=== PATIENT | male | born 2000 | race Caucasian/White ===

== ENCOUNTER 2021-07-20 02:37 | Emergency (ER) | payer MEDICAID ==
[~2021-07-20] VITALS: Ht 165.1 cm; Wt 107.5 kg
[2021-07-20 02:49] VITALS: BP 132/76
[2021-07-20] MEDS ORDERED: PREDNISONE 20MG TABLET PO ONE (04:00)
[2021-07-20] MEDS ORDERED: DIPHENHYDRAMINE 25MG CAPSULE PO ONE (04:00)
[2021-07-20] MEDS ORDERED: B50 MT (04:17)
[2021-07-20] MEDS ORDERED: P20 MT (04:17)
== END 2021-07-20 04:35 | disposition home or self-care (01) ==
LOC: ER 02:37
DX: L50.9 Urticaria, unspecified (principal)
CPT/HCPCS: 99283; J7512; Q0163

== ENCOUNTER 2021-10-30 00:35 | Emergency (ER) | payer MEDICAID ==
[~2021-10-30] VITALS: Ht 165.1 cm; Wt 105.6 kg
[~2021-10-30 00:35] MED LIST: B50 MT; P20 MT
[2021-10-30 00:47] VITALS: BP 128/69
[2021-10-30 04:54] LABS: CLARITY URINE CLEAR (CLEAR); COLOR URINE YELLOW (YELLOW); KETONES URINE TRACE (NEGATIVE); LEUKOCYTE ESTERASE URINE NEGATIVE (NEGATIVE); NITRITE URINE NEGATIVE (NEGATIVE); OCCULT BLOOD URINE NEGATIVE (NEGATIVE); PH URINE 5.5 (4.5-8.0); PROTEIN URINE NEGATIVE (NEGATIVE); SPECIFIC GRAVITY URINE 1.023 (1.005-1.030)
[2021-10-30] MEDS ORDERED: D-ME473S50 PO (06:51)
[2021-10-30] MEDS ORDERED: PYR200 PO (06:51)
[2021-10-30] MEDS ORDERED: NAPR-681 PO (06:51)
[2021-11-01 04:07] LABS: NEISSERIA GONORRHOEAE NAA Negative (Negative)
== END 2021-10-30 07:08 | disposition home or self-care (01) ==
LOC: ER 00:35
DX: J06.9 Acute upper respiratory infection, unspecified (principal); N34.2 Other urethritis; Z20.822 Contact with and (suspected) exposure to COVID-19
CPT/HCPCS: 71045; 76870; 81003; 87426; 87491; 87591; 93976; 99285; C9803